=== PATIENT | male | born 1965 | race Caucasian/White ===

== ENCOUNTER 2023-07-03 17:23 | Emergency (ER) | payer OTHER ==
[~2023-07-03] VITALS: Ht 175.3 cm; Wt 82.9 kg
[2023-07-03 18:53] VITALS: BP 136/86; PULSE 79; RESP 18; TEMP 98.6; O2SAT 99
[2023-07-03] MEDS ORDERED: LIDOCAINE 1% HCL (LOCAL ANESTH.) INJ 20ML MDV ID ONE (20:30)
[2023-07-03] MEDS ORDERED: HYDROcodone-ACET 5/325MG TAB PO ONE (21:15)
[2023-07-03] MEDS ORDERED: NEOMYCIN-BACITRACIN-POLYM UNITDOSE PKG TOP OINT TOP ONE (21:15)
[2023-07-03] MEDS ORDERED: TETANUS-DIPTH-ACEL PERTUSSIS 0.5ML SYR Tdap IM ONE (21:15)
[2023-07-03] MEDS ORDERED: MUPI2OIN2 EX (21:40)
[2023-07-03] MEDS ORDERED: IBU600T PO (21:40)
[2023-07-03] MEDS ORDERED: CEPH500T PO (21:40)
[2023-07-03] MEDS ORDERED: ceFAZolin 1GM/50ML 50 ML IV ONE (21:45)
[2023-07-04] MEDS ORDERED: HYDR-4902 PO (01:25)
[2023-07-04] MEDS ORDERED: amLODIPine BESYLATE 5 MG TAB PO ONE (01:30)
[2023-07-04] MEDS ORDERED: HYDROcodone-ACET 5/325MG TAB PO ONE (02:00)
== END 2023-07-04 06:50 | disposition home or self-care (01) ==
LOC: ER 17:23
DX: S52.592B Other fractures of lower end of left radius, initial encounter for open fracture type I or II (principal); S61.214A Laceration without foreign body of right ring finger without damage to nail, initial encounter; S61.512A Laceration without foreign body of left wrist, initial encounter; S61.412A Laceration without foreign body of left hand, initial encounter; S01.01XA Laceration without foreign body of scalp, initial encounter; Z79.899 Other long term (current) drug therapy; W22.8XXA Striking against or struck by other objects, initial encounter; Y93.89 Activity, other specified; Y92.091 Bathroom in other non-institutional residence as the place of occurrence of the external cause; Y99.8 Other external cause status
CPT/HCPCS: 12002; 73110; 73130; 90471; 90715; 96365; 99284; J0690; J2001